=== PATIENT | male | born 2000 | race African-American/Black ===

== ENCOUNTER 2023-08-16 09:04 | Emergency (ER) | payer MEDICAID, OTHER ==
[~2023-08-16] VITALS: Ht 182.9 cm; Wt 111.0 kg
[2023-08-16 09:12] VITALS: BP 134/79; O2SAT 100
[2023-08-16 09:15] VITALS: PULSE 99; RESP 16
[2023-08-16] MEDS ORDERED: IBUPROFEN 600MG TABLET PO ONE (09:30)
[2023-08-16 10:07] LABS: CLARITY URINE CLEAR (CLEAR); COLOR URINE YELLOW (YELLOW); GLUCOSE URINE NEGATIVE (NEGATIVE); KETONES URINE 1+ (NEGATIVE); LEUKOCYTE ESTERASE URINE NEGATIVE (NEGATIVE); NITRITE URINE NEGATIVE (NEGATIVE); OCCULT BLOOD URINE 1+ (NEGATIVE); PROTEIN URINE 1+ (NEGATIVE); SPECIFIC GRAVITY URINE 1.026 (1.005-1.030)
[2023-08-16 10:36] LABS: WBC URINE 0-2 /hpf (0-2)
[2023-08-16 10:37] LABS: BACTERIA URINE NONE SEEN; HYALINE CASTS URINE 0-5 /lpf; SQUAMOUS EPITHELIAL CELL URINE NONE SEEN /lpf (RARE/1+)
[2023-08-16] MEDS ORDERED: ACETAMINOPHEN 325MG TABLET PO ONE (11:15)
[2023-08-16 11:38] VITALS: TEMP 98.6
[2023-08-16] MEDS ORDERED: NAPR-1129 MT (11:39)
== END 2023-08-16 12:00 | disposition home or self-care (01) ==
LOC: ER 09:04
DX: R50.9 Fever, unspecified (principal); M79.10 Myalgia, unspecified site; Z20.822 Contact with and (suspected) exposure to COVID-19
CPT/HCPCS: 71045; 81003; 87426; 87804; 99284; C9803